=== PATIENT | female | born 1995 ===

== ENCOUNTER 2017-05-05 12:34 | Emergency (ER) | payer OTHER ==
[2017-05-05 12:48] VITALS: RESP 18; O2SAT 100
--- NOTE | 2017-05-05 14:19 | C.PDOC ---
History Of Present Illness A 21 year old female, whose past medical history includes hypertension, presents to the emergency department for menstrual cramps after getting her menstrual cycle today. The patient reports the cramps to be sharp and severe. The patient admits that her menstrual cycles are irregular and gets them about every 3-4 months and when she does get her cycle it is severely painful. The patient states her current pain is similar to her previous menstrual cycle. She denies any fever, trauma, nausea, diarrhea, dysuria, or any other complaints. Time Seen by Provider: 05/05/17 13:05 Chief Complaint (Nursing): Abdominal Pain Past Medical History Reviewed: Historical Data, Nursing Documentation, Vital Signs Vital Signs: Last Vital Signs Temp 98.1 F 05/05/17 15:22 Pulse 60 05/05/17 15:22 Resp 18 05/05/17 15:22 BP 145/84 05/05/17 15:22 Pulse Ox 100 05/05/17 15:22 - Medical History PMH: HTN Family History: States: No Known Family Hx - Social History Hx Alcohol Use: No Hx Substance Use: No - Immunization History Hx Tetanus Toxoid Vaccination: No Hx Influenza Vaccination: No Hx Pneumococcal Vaccination: No Review Of Systems Except As Marked, All Systems Reviewed And Found Negative. Constitutional: Negative for: Fever Gastrointestinal: Positive for: Other (menstrual cramps). Negative for: Nausea , Vomiting, Diarrhea Genitourinary: Negative for: Dysuria Physical Exam - Physical Exam Appears: Well, Non-toxic, No Acute Distress Skin: Normal Color, Warm, Dry, No Rash Head: Atraumatic, Normacephalic Eye(s): bilateral: Normal Inspection, PERRL, EOMI Oral Mucosa: Moist Neck: Normal, Normal ROM, Supple Cardiovascular: Rhythm Regular Respiratory: Normal Breath Sounds, No Rales, No Rhonchi, No Wheezing Gastrointestinal/Abdominal: Normal Exam, Bowel Sounds, Soft, No Tenderness Back: Normal Inspection, No CVA Tenderness, No Vertebral Tenderness Extremity: Normal ROM, No Swelling Neurological/Psych: Oriented x3, Normal Speech, Normal Cognition Gait: Steady ED Course And Treatment O2 Sat by Pulse Oximetry: 100 (on RA) Pulse Ox Interpretation: Normal Medical Decision Making Medical Decision Making: On second re-exam, the patient reports improvement of symptoms. Lungs are CTA, heart is RRR, Ambulatory in the ED with steady gait. Abdomen is soft, non- tender and tolerating PO well. Follow up with the medical doctor within 1-2 days. Return if worsened Disposition - Disposition Referrals: [facility] [Outside] Disposition: HOME/ ROUTINE Disposition Time: 15:06 Condition: GOOD Additional Instructions: Follow up with the medical doctor/clinic within 1-2 days. Return if worsened. Prescriptions: Ibuprofen [Motrin] 600 mg PO TID #21 tab traMADol [Ultram] 50 mg PO Q6 PRN #15 tab PRN Reason: Pain Instructions: Polycystic Ovarian Syndrome (ED) Forms: [employer] (Serbian) Print Language: EGYPTIAN - Clinical Impression Clinical Impression: Dysmenorrhea - Scribe Statement The provider has reviewed the documentation as recorded by the Scribe Sunitha Montero All medical record entries made by the Scribe were at my direction and personally dictated by me. I have reviewed the chart and agree that the record accurately reflects my personal performance of the history, physical exam, medical decision making, and the department course for this patient. I have also personally directed, reviewed, and agree with the discharge instructions and disposition.
[2017-05-05 14:23] LABS: RBC URINE 260 /hpf (0-3); URINE BILIRUBIN NEGATIVE (NEGATIVE); URINE BLOOD 3+ (NEGATIVE); URINE COLOR Yellow (YELLOW); URINE GLUCOSE (UA) NORMAL (Normal); URINE KETONE NEGATIVE (NEGATIVE); URINE LEUKOCYTE ESTERASE NEG Leu/uL (Negative); URINE PROTEIN 1+ mg/dL (NEGATIVE); URINE UROBILINOGEN NORMAL mg/dL (0.2-1.0); WBC URINE 8 /hpf (0-5)
[2017-05-05 15:24] VITALS: BP 145/84; PULSE 60; TEMP 98.1
== END 2017-05-05 15:15 | disposition home or self-care (01) ==
LOC: C.ER 12:34
DX: N94.6 Dysmenorrhea, unspecified (principal)